=== PATIENT | male | born 1945 | race Caucasian/White ===

== ENCOUNTER → 2024-10-29 | Outpatient (CLI) | payer MEDICARE, BC, SELFPAY ==
[2024-10-29 14:03] LABS: Albumin, Serum 4.6 gm/dL (3.4-4.8); Anion Gap 7 (7-16); BUN/Creatinine Ratio 20 Ratio (12-20); Blood Urea Nitrogen 40 mg/dL (9-23); Calcium 9.9 mg/dL (8.3-10.6); Calcium (Corrected) 9.9 mg/dL (8.5-10.1); Carbon Dioxide 27.2 mMol/L (20.0-31.0); Chloride 104 mMol/L (98-107); Glucose 106 mg/dL (74-106); Osmolality,Calculated 285 (275-295); Phosphorous 3.1 mg/dL (2.4-5.1); Potassium 4.3 mMol/L (3.4-5.1); Sodium 138 mMol/L (136-145); eGFR 33 See Note
== END | disposition home or self-care (01) ==
LOC: COPL 13:15
PROVIDERS: PCP Internal Medicine; Referring Provider Internal Medicine; Visit Provider Internal Medicine
DX: I12.9 Hypertensive chronic kidney disease with stage 1 through stage 4 chronic kidney disease, or unspecified chronic kidney disease (principal); N18.32 Chronic kidney disease, stage 3b
CPT/HCPCS: 36415; 80069

== ENCOUNTER → 2025-01-27 | Outpatient (CLI) | payer MEDICARE, BC, SELFPAY ==
[2025-01-27 13:07] LABS: Basophils # (Auto) 0.1 Thou/mm3 (0.0-0.2); Basophils % (Auto) 1 % (0-2.5); Eosinophils # (Auto) 0.2 Thou/mm3 (0.0-0.5); Eosinophils % (Auto) 2 % (0-10); Hematocrit 38.3 % (41.0-53.0); Hemoglobin 12.6 g/dL (13.5-16.0); Immature Granulocytes % (Auto) 1 % (0-0); Immature Granulocytes Auto 0.09 Thou/mm3 (0.00-0.00); Lymphocytes # (Auto) 2.2 Thou/mm3 (1.0-4.8); Lymphocytes % (Auto) 24 % (10-50); Mean Corpuscular HGB Conc 32.9 g/dl (31.0-37.0); Mean Corpuscular Hemoglobin 32.1 pg (25.0-35.0); Mean Corpuscular Volume 98 fL (80-100); Monocytes # (Auto) 0.8 Thou/mm3 (0.0-0.8); Monocytes % (Auto) 9 % (0-12); Neutrophils # (Auto) 5.8 Thou/mm3 (1.8-7.7); Neutrophils % (Auto) 63 % (37-80); Nucleated Red Blood Cell % 0 /100 WBC (0); Platelet Count 223 Thou/mm3 (140-440); RDW Standard Deviation 47.8 fL (35.1-43.9); Red Blood Count 3.93 Miln/mm3 (4.50-5.90); White Blood Count 9.1 Thou/mm3 (3.8-10.6)
[2025-01-27 13:31] LABS: Albumin, Serum 4.4 gm/dL (3.4-4.8); Anion Gap 8 (7-16); BUN/Creatinine Ratio 16 Ratio (12-20); Blood Urea Nitrogen 30 mg/dL (9-23); Calcium 10.5 mg/dL (8.3-10.6); Calcium (Corrected) 10.5 mg/dL (8.5-10.1); Carbon Dioxide 28.4 mMol/L (20.0-31.0); Chloride 107 mMol/L (98-107); Creatinine (Component) 1.9 mg/dL (0.6-1.3); Glucose 116 mg/dL (74-106); Osmolality,Calculated 292 (275-295); Phosphorous 2.7 mg/dL (2.4-5.1); Potassium 4.1 mMol/L (3.4-5.1); Sodium 143 mMol/L (136-145); eGFR 35 See Note
[2025-01-27 15:23] LABS: Iron 100 mcg/dL (65-175); Percent Iron Saturation 29 % (20-55); Total Iron Binding Capacity 337 mcg/dL (250-425); Unsaturated Iron Binding 237 (225-295)
== END | disposition home or self-care (01) ==
PROVIDERS: PCP Internal Medicine; Referring Provider Internal Medicine; Visit Provider Internal Medicine
DX: I12.9 Hypertensive chronic kidney disease with stage 1 through stage 4 chronic kidney disease, or unspecified chronic kidney disease (principal); N18.32 Chronic kidney disease, stage 3b
CPT/HCPCS: 36415; 80069; 83540; 83550; 85025

== ENCOUNTER → 2025-02-01 | Outpatient (CLI) | payer MEDICARE, BC, SELFPAY ==
--- NOTE | 2025-02-01 | XR_ITS ---
Examination:Left hip AP, lateral, AP pelvis 3 views Technique: Hip AP lateral, AP pelvis, 3 views Exam date and time:February 01, 2025 1343 hours Comparison July 01, 2021 INDICATIONS: Left hip pain one year. FINDINGS: Healed left hip fracture Old fractures right superior inferior pubic rami Moderate left hip osteoarthritis Mild to moderate right hip osteoarthritis IMPRESSION: No acute fracture Moderate left hip osteoarthritis.
== END | disposition home or self-care (01) ==
PROVIDERS: PCP Internal Medicine; Referring Provider Internal Medicine; Visit Provider Internal Medicine
DX: M16.12 Unilateral primary osteoarthritis, left hip (principal)
CPT/HCPCS: 73502

== ENCOUNTER 2025-03-08 13:01 | Outpatient (AMB) | payer MEDICARE, BC, SELFPAY ==
[2025-03-08 13:36] VITALS: BP 165/71; PULSE 48; RESP 18; TEMP 37.1; O2SAT 94; BMI 28.0
--- NOTE | 2025-03-08 13:36 | ORTHONT_ITS ---
Vital signs 03/08/25 13:36 Height 1.85 m Height Method Stated Weight 96.303 kg Weight Measurement Method Standing Scale BMI 28.0 BP 165/71 H Blood Pressure Source Automatic Cuff Blood Pressure Location Right Upper Arm Position Sitting Respiration 18 Pulse 48 L Pulse Source Monitor Temp 98.7 F Temp Source Temporal Artery Scan Pulse Oximetry (%) 94 L Oxygen Delivery Method Room Air Med/Allergies Allergies & Medications Allergies No Known Allergies Allergy (Verified 03/08/25 13:37) Medication Reconciliation ergocalciferol (vitamin D2) 10 mcg (400 unit) tablet 10 mcg PO QDAY 10/22/20 [History Confirmed 06/24/22] valsartan 320 mg-hydrochlorothiazide 12.5 mg tablet 1 tab PO QDAY 10/22/20 [History Confirmed 06/24/22] warfarin 5 mg tablet 5 mg PO QDAY 10/22/20 [History Confirmed 06/24/22] ferrous sulfate 325 mg (65 mg iron) tablet 325 mg PO QDAY 03/08/25 [History Confirmed 03/08/25] finerenone 10 mg tablet (Kerendia) 10 mg PO QDAY 03/08/25 [History Confirmed 03/08/25] hydralazine 50 mg tablet 50 mg PO TID 03/08/25 [History Confirmed 03/08/25] hydrocodone 5 mg-acetaminophen 325 mg tablet 1 tab PO BID PRN 03/08/25 [History Confirmed 03/08/25] memantine 5 mg tablet 5 mg PO QAM 03/08/25 [History Confirmed 03/08/25] nebivolol 5 mg tablet 5 mg PO QDAY 03/08/25 [History Confirmed 03/08/25] olmesartan 40 mg-hydrochlorothiazide 25 mg tablet 1 tab PO QDAY 03/08/25 [History Confirmed 03/08/25] vitamin B complex-vitamin C-folic acid 0.8 mg tablet (Renal Vitamin) 1 tab PO QDAY 03/08/25 [History Confirmed 03/08/25] vortioxetine 10 mg tablet (Trintellix) 10 mg PO QDAY 03/08/25 [History Confirmed 03/08/25] warfarin 5 mg tablet 5 mg PO QMWF 03/08/25 [History Confirmed 03/08/25] Exam Exam Patient is in no acute distress and is cooperative with the examination today. Breathing is nonlabored. In no respiratory distress. Patient has no paraspinal tenderness. Spinal deformity cannot be appreciated. The gait of the patient is nonantalgic Bilateral extremities were evaluated and demonstrates sensation intact to light touch. Palpable pedal pulses are present. No significant edema is present. Bilateral knees were examined and the patient has full strength and range of motion.. The right hip was examined. Patient was able to flex to 90 degrees, adduct to 30 degrees, abduct to 40 degrees, internally rotate to 20 degrees, and externally rotate to 20 degrees. Patient has a negative logroll. Stinchfield is negative. The patient is nontender diffusely to touch. The left hip was examined. Patient was able to flex to 90 degrees, adduct to 30 degrees, abduct to 40 degrees, internally rotate to 20 degrees, and externally rotate to 20 degrees. Patient has a negative logroll. The stinchfield is negative. Patient is tender laterally over the greater trochanter X-rays have formed straight a cephalomedullary nail in good alignment position Assessment and Plan Problem List (1) Trochanteric bursitis of left hip: Status: Acute Plan: Patient is a pleasant 80-year-old male with left hip trochanteric bursitis and x-rays that show mild arthritis. The pain is predominately on the side and clinically he seems to have trochanteric bursitis. We discussed different treatment options including injections. Anti-inflammatories will be difficult because of his blood thinner. Recommend hip bursa cortisone injection as patient would like to proceed with conservative treatment at this time. The risks and benefits of the procedure were reviewed with the patient and patient gave verbal consent to continue with the procedure. Procedure: performed by Dr. Camilo Using sterile technique the left hip bursa was thoroughly prepped with alcohol prep, and approximately 1 cc of Kenalog 40 mg/mL and 4 cc of 1% Lidocaine was injected without resistance. The patient tolerated the procedure well. 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 Level 3 (6060-0157) Surgical Proc/IM SQ injection Major Surgical Procedure: Yes (HIP INJECTION ) Medication Given Medication Given Medication Given: Yes Documented Dose Given: 4 Route: Infiitration Medication Given Medication Given Medication Given: Yes Documented Dose Given: 1 Route: Infiitration Office Meds Xylocaine 10 mg/mL (1 %) injection solution Performing Provider: Marvin Camilo MD Performing Location: [facility] Administered by: Marvin Camilo MD on 03/08/25 13:46 Dose Route Admin Location Dispensed Lot Number Expiration Date [facility] Check Writer 20 mL Infiltration 20 mL [id number] [facility] KA triamcinolone acetonide 40 mg/mL suspension for injection Performing Provider: Marvin Camilo MD Performing Location: [facility] Administered by: Marvin Camilo MD on 03/08/25 13:46 Dose Route Admin Location Dispensed Lot Number Expiration Date [facility] Check Writer 40 mg intra-articular HIP 1 mL [id number] 03/17/26 [id number] [facility] [place] Intake Visit Data Collection New Patient or Established: New Patient (never been to [facility]) Reason for Visit:: HIP PAIN Seen by Clinical Staff ONLY (RN/MA): No Verbal consent obtained for Telemed visit?: No Rouge Mixer Required: No PCP or OBGYN visit in last 3 months: Yes Hx Now: No Do You Feel Safe at Home: Yes Authorities Contacted: N/A Questionairres Past Medical History Past Medical History Have you ever been diagnosed with any of the following: Neurological Problems Seizures: No Subdural Hematoma: Yes Head Trauma: Yes Cardiology Problems Congestive Heart Failure: No Valvular Heart Disease: Yes Edema: No Cellulitis: No Hypertension: Yes Respiratory Problems Chronic Obstructive Pulmonary Disease (COPD): No Tuberculosis: No Sleep Apnea: Yes Stomache/Intestinal Problems Hepatitis: No Genital/Urinary Problems Renal Disease: No Musculoskeletal Problems Fractures: Yes (left hip) Endocrine Problems Diabetes Mellitus Type 1: No Diabetes Mellitus Type 2: No Other Problems Hospitalization: No Shingles: No Falls: No Blood Transfusions: No Anesthesia Reactions: No Chemotherapy: No Radiation Therapy: No MRSA: No Chicken Pox: No Measles: No Mumps: No Cancer: No Surgical History Valve Replacement: Yes Pacemaker: No Subjective Visit Visit for: new patient and hip Immunization / Flu Flu Vaccine in the Last 12 Months: No Flu Vaccine Exclusion Criteria: No Exclusion Criteria History of Present Illness Chief complaint: HIP PAIN Date of injury / onset of symptoms: HIP FX 2020 Vin is a pleasant 80-year-old male with a prior Left hip cephalomedullary nail approximately 5 years ago. He has had no issues until recently. The pain is on the lateral aspect of his hip. It is tender to palpation he has difficulty sleeping on his side. He cannot take anti-inflammatories because of Blood thinners and a valve replacement Personal History Occupation: RETIRED Red flag PMH: Blood thinners and BMI BMI Counceling provided: Yes Additional comments: PATIENT HAS DEMENTIA Pain Pain level (0-10): 6 Pain duration: ALL DAY Pain location: groin Pain quality: burning Pain timing: increases with activity Associated signs & symptoms: none Ambulatory data Ambulatory device: cane Treatments Improvement with previous injections: No Improvement with PT: No Improvement with NSAIDS: no Review of Systems Review of Systems: All systems negative unless otherwise noted in HPI.
== END 2025-03-08 14:00 | disposition home or self-care (01) ==
PROVIDERS: PCP Internal Medicine; Referring Provider Internal Medicine; Supervising Provider Orthopaedic Surgery Adult Reconstructive Orthopaedic Surgery; Visit Provider Orthopaedic Surgery Adult Reconstructive Orthopaedic Surgery
DX: M70.62 Trochanteric bursitis, left hip (principal); G47.30 Sleep apnea, unspecified; I10 Essential (primary) hypertension
CPT/HCPCS: 20610; 99203; J3301; J3490; G0463

== ENCOUNTER 2025-03-17 09:59 | Outpatient (AMB) | payer MEDICARE, BC, SELFPAY ==
--- NOTE | 2025-03-17 10:18 | ORTHONT_ITS ---
Vital signs 03/17/25 10:20 Height 1.85 m Height Method Stated Weight 96.757 kg Weight Measurement Method Standing Scale BMI 28.3 BP 152/67 H Blood Pressure Source Automatic Cuff Blood Pressure Location Left Upper Arm Position Sitting Respiration 18 Pulse 52 L Pulse Source Monitor Temp 98.2 F Temp Source Temporal Artery Scan Pulse Oximetry (%) 98 Oxygen Delivery Method Room Air Med/Allergies Allergies & Medications Allergies No Known Allergies Allergy (Verified 03/17/25 10:20) Medication Reconciliation ergocalciferol (vitamin D2) 10 mcg (400 unit) tablet 10 mcg PO QDAY 10/22/20 [Hi story Confirmed 03/17/25] valsartan 320 mg-hydrochlorothiazide 12.5 mg tablet 1 tab PO QDAY 10/22/20 [History Confirmed 03/17/25] warfarin 5 mg tablet 5 mg PO QDAY 10/22/20 [History Confirmed 03/17/25] ferrous sulfate 325 mg (65 mg iron) tablet 325 mg PO QDAY 03/08/25 [History Confirmed 03/17/25] finerenone 10 mg tablet (Kerendia) 10 mg PO QDAY 03/08/25 [History Confirmed 03/17/25] hydralazine 50 mg tablet 50 mg PO TID 03/08/25 [History Confirmed 03/17/25] hydrocodone 5 mg-acetaminophen 325 mg tablet 1 tab PO BID PRN 03/08/25 [History Confirmed 03/17/25] memantine 5 mg tablet 5 mg PO QAM 03/08/25 [History Confirmed 03/17/25] nebivolol 5 mg tablet 5 mg PO QDAY 03/08/25 [History Confirmed 03/17/25] olmesartan 40 mg-hydrochlorothiazide 25 mg tablet 1 tab PO QDAY 03/08/25 [History Confirmed 03/17/25] vitamin B complex-vitamin C-folic acid 0.8 mg tablet (Renal Vitamin) 1 tab PO QDAY 03/08/25 [History Confirmed 03/17/25] vortioxetine 10 mg tablet (Trintellix) 10 mg PO QDAY 03/08/25 [History Confirmed 03/17/25] warfarin 5 mg tablet 5 mg PO QMWF 03/08/25 [History Confirmed 03/17/25] Exam Exam Patient is in no acute distress and is cooperative with the examination today. Breathing is nonlabored. In no respiratory distress. Patient has no paraspinal tenderness. Spinal deformity cannot be appreciated. The gait of the patient is nonantalgic Bilateral extremities were evaluated and demonstrates sensation intact to light touch. Palpable pedal pulses are present. No significant edema is present. Bilateral knees were examined and the patient has full strength and range of motion.. The right hip was examined. Patient was able to flex to 90 degrees, adduct to 30 degrees, abduct to 40 degrees, internally rotate to 20 degrees, and externally rotate to 20 degrees. Patient has a negative logroll. Stinchfield is negative. The patient is nontender diffusely to touch. The left hip was examined. Patient was able to flex to 90 degrees, adduct to 30 degrees, abduct to 40 degrees, internally rotate to 20 degrees, and externally rotate to 20 degrees. Patient has a negative logroll. The stinchfield is negative. Patient is tender laterally over the greater trochanter X-rays have formed straight a cephalomedullary nail in good alignment position Assessment and Plan Problem List (1) Trochanteric bursitis of left hip: Status: Acute Plan: Patient is a pleasant 80-year-old male with left hip trochanteric bursitis and x-rays that show mild arthritis. The pain is predominately on the side and clinically he seems to have trochanteric bursitis. We gave him a cortisone injection 1 week ago. It is somewhat working. He would like To try formal physical therapy mainly because of balance issues We will set him up with physical therapy. He cannot take anti-inflammatories for his trochanteric bursitis because of his blood thinner Advanced Care Planning Discussion Advance care planning discussed with:: patient Office Procedures GNS Level of Care Nursing/Assessment Patient Status: Established Patient Nursing Assessment/Reassesment: Medication Reconciliation, Update PMH in EMR and Vital Signs Coordination of Care: Complex Care and Chronic Disease 1-5, Education Complex Pt/Fam, Consent,records obtained, informed consent, Results/Orders obtained and Staff clarify orders Established Patient Charge Established Patient Point Assignment: 95 Established Patient Point Charge: EP Level 3 (80-115) MA Intake Visit Data Collection New Patient or Established: Established Patient (seen at [facility] within 3 years) Reason for Visit:: RIGHT HIP PAIN FOLLOW UP PCP or OBGYN visit in last 3 months: Yes Hx Now: No Do You Feel Safe at Home: Yes Authorities Contacted: N/A Questionairres Past Medical History Past Medical History Have you ever been diagnosed with any of the following: Neurological Problems Seizures: No Subdural Hematoma: Yes Head Trauma: Yes Cardiology Problems Congestive Heart Failure: No Valvular Heart Disease: Yes Edema: No Cellulitis: No Hypertension: Yes Respiratory Problems Chronic Obstructive Pulmonary Disease (COPD): No Tuberculosis: No Sleep Apnea: Yes Smoking: No Smoking Exposure: No Stomache/Intestinal Problems Hepatitis: No Genital/Urinary Problems Renal Disease: No Musculoskeletal Problems Fractures: Yes (left hip) Endocrine Problems Diabetes Mellitus Type 1: No Diabetes Mellitus Type 2: No Other Problems Hospitalization: No Shingles: No Falls: No Blood Transfusions: No Anesthesia Reactions: No Chemotherapy: No Radiation Therapy: No MRSA: No Chicken Pox: No Measles: No Mumps: No Cancer: No Surgical History Valve Replacement: Yes Pacemaker: No Subjective Visit Visit for: follow up visit and hip Immunization / Flu Flu Vaccine in the Last 12 Months: No Flu Vaccine Exclusion Criteria: No Exclusion Criteria History of Present Illness Chief complaint: HIP PAIN Date of injury / onset of symptoms: HIP FX Marquita Banuelos is a pleasant 80-year-old male with a prior Left hip cephalomedullary nail approximately 5 years ago. He has had no issues until recently. The pain is on the lateral aspect of his hip. It is tender to palpation he has difficulty sleeping on his side. He cannot take anti-inflammatories because of Blood thinners and a valve replacement. He had an injection 1 week ago. There was good relief of the pain initially but it is starting to come back. We discussed with him that it sometimes takes a few days for the cortisone towork and it is starting to improve again Personal History Occupation: RETIRED Red flag PMH: Blood thinners and BMI BMI Counceling provided: Yes Additional comments: PATIENT HAS DEMENTIA Pain Pain level (0-10): 10 Pain duration: ALL DAY Pain location: inside (medial) and anterior Pain quality: dull and aching Pain timing: increases with activity Associated signs & symptoms: weakness Ambulatory data Ambulatory device: none Treatments Improvement with previous injections: No Improvement with PT: No Improvement with NSAIDS: no Review of Systems Review of Systems: All systems negative unless otherwise noted in HPI.
[2025-03-17 10:20] VITALS: BP 152/67; PULSE 52; RESP 18; TEMP 36.8; O2SAT 98; BMI 28.3
== END 2025-03-17 10:36 | disposition home or self-care (01) ==
LOC: HODSRG 09:59
PROVIDERS: PCP Internal Medicine; Referring Provider Internal Medicine; Supervising Provider Orthopaedic Surgery Adult Reconstructive Orthopaedic Surgery; Visit Provider Orthopaedic Surgery Adult Reconstructive Orthopaedic Surgery
DX: M70.62 Trochanteric bursitis, left hip (principal); M16.12 Unilateral primary osteoarthritis, left hip; I10 Essential (primary) hypertension; G47.30 Sleep apnea, unspecified; Z95.2 Presence of prosthetic heart valve
CPT/HCPCS: 99213; G0463

== ENCOUNTER → 2025-04-27 | Outpatient (CLI) | payer MEDICARE, BC, SELFPAY ==
[2025-04-27 11:52] LABS: Parathyroid Hormone Intact 64.6 pg/ml (18.5-88.0)
[2025-04-27 12:02] LABS: Albumin, Serum 4.1 gm/dL (3.4-4.8); Anion Gap 12 (7-16); BUN/Creatinine Ratio 21 Ratio (12-20); Blood Urea Nitrogen 40 mg/dL (9-23); Calcium 9.6 mg/dL (8.3-10.6); Calcium (Corrected) 9.6 mg/dL (8.5-10.1); Carbon Dioxide 25.7 mMol/L (20.0-31.0); Chloride 106 mMol/L (98-107); Creatinine (Component) 1.9 mg/dL (0.6-1.3); Glucose 94 mg/dL (74-106); Osmolality,Calculated 296 (275-295); Potassium 4.1 mMol/L (3.4-5.1); Sodium 144 mMol/L (136-145); eGFR 35 See Note
== END | disposition home or self-care (01) ==
LOC: COPL 10:56
PROVIDERS: PCP Internal Medicine; Referring Provider Internal Medicine; Visit Provider Internal Medicine
DX: I12.9 Hypertensive chronic kidney disease with stage 1 through stage 4 chronic kidney disease, or unspecified chronic kidney disease (principal); N18.32 Chronic kidney disease, stage 3b
CPT/HCPCS: 36415; 80069; 83970

== ENCOUNTER 2025-06-20 09:31 | Emergency (ER) | payer MEDICARE, BC, SELFPAY ==
[2025-06-20] VITALS (10 sets, daily range): BP systolic 153–188; BP diastolic 83–91; PULSE 57–84; RESP 17–18; TEMP 36.4–36.7; O2SAT 95–100; BMI 29.8
--- NOTE | 2025-06-20 09:45 | PC.NURSE ---
Patient refusing to keep radiation monitor on, very agitated with it on, removed, Provider made aware.
--- NOTE | 2025-06-20 09:59 | EDNOTE_ITS ---
<Statement entered by Lisa Olivo MD - 06/21/25 08:10> I, Lisa Olivo MD, have reviewed the history, exam, and assessment of the patient. I have evaluated the patient independently and agree with the plan of care documented by [ ]. All diagnostic studies were reviewed and discussed. I confirm the diagnosis as documented by the Resident. I was present during the Medical Decision Making for this patient. The patient's plan of care was created between myself and the Resident and consistent with our discussion of the patient's case. ED General RME/HPI General Chief complaint: Altered Mental Status Stated complaint: BEHAVIORAL PROBLEMS Time Seen by Provider: 06/20/25 09:56 Arrival date/time: 06/20/25 09:31 RME / HPI RME / HPI narrative: 80-year-old male with past medical history of CKD, subdural hemorrhage s/p mechanical fall, hypertension, aortic valve replacement on warfarin, and vascular dementia comes into the ED brought in by ambulance after patient had attempted to escape from his home as he was having episode of agitation and confusion likely secondary to his dementia. Patient's caregiver was with the patient at this time and patient's caregiver was with the patient at the time of arrival. Patient's caregiver stated that for the past 4 days patient has been more aggressive and more agitated and he recently started mirtazapine for the first time yesterday night. Family attempted to talk to the patient's primary care physician who stated to bring the patient to the ER for further evaluation. Patient at time evaluation is nontoxic and is calm. Related Data Home Medications ?Medication ?Instructions ?Recorded ?Confirmed ferrous sulfate 325 mg (65 mg 325 mg PO BID 03/08/25 0 06/20/25 iron) tablet hydralazine 50 mg tablet 50 mg PO HS 03/08/25 5 memantine 5 mg tablet 5 mg PO BID 03/08/25 5 olmesartan 40 1 tab PO QDAY 03/08/2506/20 mg-hydrochlorothiazide 25 mg tablet brexpiprazole 1 mg tablet (Rexulti) 1 mg PO QDAY 06/2006/20/25 cholecalciferol (vitamin D3) PO QDAY 06/20/25 finerenone PO QDAY 06/20/25 hydrochlorothiazide 50 mg tablet 50 mg PO .qhs 5 06/20/25 nebivolol 5 mg tablet 5 mg PO QDAY 06/20/25 vitamin B complex-vitamin C-folic 1 tab PO QDAY 06/20/25 acid 0.8 mg tablet vitamin B12 0.5 mg-folic acid 1 mg 1 tab PO QAM 06/20/25 tablet warfarin 2.5 mg tablet 5 mg PO QDAY 06/20/25 Allergies Allergy/AdvReac Type Severity Reaction Status Date / Time No Known Allergies Allergy Verified 06/20/25 09:37 Review of Systems Review of Systems Systems Reviewed: All systems reviewed, normal except as documented Past Medical History Past Medical History NEUROLOGIC: Positive Neurological Disorders, Subdural Hematoma (BRAIN BLEED. FELL 10/22/21-RESOLVED) and Head Trauma; Negative Seizures CARDIAC: Positive Cardiac Disorders (AORTIC HEART VALVE TITANIUM JANUARY 1997), Valvular Heart Disease and Hypertension; Negative Congestive Heart Failure, Edema or Cellulitis RESPIRATORY: Positive Sleep Apnea (CPAP); Negative Chronic Obstructive Pulmonary Disease (COPD) or Tuberculosis GASTROINTESTINAL: Negative Gastrointestinal Disorders or Hepatitis GENITOURINARY: Negative Genitourinary Disorders or Renal Disease MUSCULOSKELETAL: Positive Musculoskeletal Disorders and Fractures (LEFT HIP HAS BAR) ENT: Positive Head Trauma ENDOCRINE: Negative Endocrine Disorders, Diabetes Mellitus Type 1 or Diabetes Mellitus Type 2 HEMATOLOGIC: Negative Blood Disorders OTHER HISTORY: Positive Hospitalization (HOSP FOR HEAD TRAUMA) and Falls (10/18/2020 [facility]F HIP HAD JASSI); Negative Autoimmune Disease, Shingles, Blood Transfusions, Blood Transfusion Reaction, Anesthesia Reactions, Chemotherapy, Radiation Therapy, MRSA, Chicken Pox, Measles, Mumps or Cancer Family History FAMILY HISTORY: Positive Family Respiratory Disorders (MOTHER (COPD)); Negative Family Psychiatric Problems, Family Cardiac Disorders, Family Gastrointestinal Problems, Family Cancer, Family Surgery or Family Anesthesia Reaction Surgical History SURGICAL: Positive Cardiac Surgery, Valve Replacement (TITANIUM), Angiogram and Joint Replacement (LEFT HIP HAS BAR); Negative Pacemaker Social History SMOKING STATUS: Never smoker Travel History EBOLA RISK: No ED Exam Narrative Physical exam: Gen: A&O X 1 (name only), NAD HEENT: NCAT, EOMI, Pupils reactive EMERITA, not icteric. External ears normal. No rhinorrhea. Moist mucous membranes. Neck: Supple, full range of motion, no observable masses, No meningeal sign. Lungs: No Respiratory distress, clear bilateral. CV: RRR, no murmurs. Abdomen: Soft, nondistended, No rebound tenderness. MSK: No joint swelling, no redness, peripheral pulses presents, lumbar with no edema. Skin: No rashes, petechiae, skin lesion in R ear (consistent with skin cancer) Neuro: No focal neurological deficits appreciated, sensory and motor intact. Psych: Cooperative Course Quality Measures none Orders Category Date Time Status Construction Engineering Manager Q4H START 00 Care 06/20/25 10:13 Active Continuous Pulse Oximetry NOW Care 06/20/25 10:13 Completed Miscellaneous Nursing Order NOW Care 06/20/25 16:56 Active Diet Cardiac Diet 06/20/25 Dinner Active CBC [CBC] Stat Lab 06/20/25 10:23 Completed CMP [Comprehensive Metabolic Panel] Stat Lab 06/20/25 10:23 Completed UA [Urinalysis] Stat Lab 06/20/25 11:25 Completed Memantine HCl [Namenda] Med 06/20/25 21:00 Active 5 mg PO BID Nebivolol HCl [Bystolic] Med 06/20/25 17:00 Active 5 mg PO QDAY Patient's Own Med [Patient's Own Medication] 1 ea Med 06/20/25 17:15 Active Pre-Mixed Bottle [Pre-mixed Bottle] 1 btl PO QDAY Patient's Own Med [Patient's Own Medication] 1 ea Med 06/20/25 17:15 Active Pre-Mixed Bottle [Pre-mixed Bottle] 1 btl PO QDAY Warfarin [Coumadin] Med 06/20/25 17:00 Active 5 mg PO QDAY@1200 hydrALAZINE HCL [Apresoline] Med 06/20/25 21:00 Active 50 mg PO HS olmesartan-hydrochlorothiazide Med 06/20/25 17:00 Active 1 tab PO QDAY Vital Signs Vital signs: Vital Signs Temperature 97.7 F 06/20/25 09:35 Pulse Rate 71 06/20/25 09:35 Respiratory Rate 18 06/20/25 09:35 Blood Pressure 153/83 H 06/20/25 09:35 Pulse Oximetry (%) 96 06/20/25 09:35 Oxygen Delivery Method Room Air 06/20/25 09:35 Discharge Plan Prescriptions/Referrals Prescriptions/Med Rec: No Action olmesartan-hydrochlorothiazide 40-25 mg tablet 1 tab PO QDAY hydralazine 50 mg tablet 50 mg PO HS memantine 5 mg tablet 5 mg PO BID ferrous sulfate 325 mg (65 mg iron) tablet 325 mg PO BID warfarin 2.5 mg tablet 5 mg PO QDAY Patient Comments: pt takes 5 mg warfarin daily nebivolol 5 mg tablet 5 mg PO QDAY B complex-vitamin C-folic acid 0.8 mg tablet 1 tab PO QDAY finerenone [Kerendia] PO QDAY Patient Comments: unknown dose cholecalciferol (vitamin D3) PO QDAY hydrochlorothiazide 50 mg tablet 50 mg PO .qhs Rexulti 1 mg tablet 1 mg PO QDAY vitamin [id number] acid 0.5-1 mg tablet 1 tab PO QAM Patient Comments: unknown dose Referrals: Santy Gannon [Primary Care Provider] - In 1 week Problem List Clinical Impression: Agitation due to dementia Patient/Caregiver Discharge Instructions Other Activity Instructions:: Follow her primary care physician within 5 days to work for possibility of placement in a long-term care facility. Please come back to the ED if agitation persists or worsens or patient is at risk to himself or others. Education Materials: Dementia Patients Safety Tips, Understanding Dementia, Dementia Caregiver Tips Print Language: Kazakh MDM Narrative MDM hospital course: 10:00: Greeted and assessed the patient. 10:13: Ordered CBC, CMP, and UA. 10:50: Spoke with patient's daughters about the patient's progression of dementia and thoroughly explained to them that this was likely secondary to the progression of the disease. Patient's daughter stated that at this time they have cared for the patient throughout the day but not 24-hour care. They stated that this time patient lives with his who is 75 years old and they state that sometimes patient has shown aggression towards her and they fear for her safety at this time given the progression of the disease. At this time patient's daughters agree that it would be in the patient's best interest and safety to have placement as patient's disease has progressed we will states where it is unmanageable by family members. 14:00 Patient reevaluated. Doing well, but somewhat irritable. Still pending placement. 14:24: Spoke with clinical social work aide, patient does not qualify for placement. social services counselor will see if patient qualifies for HH. 14:30: Updated patient's daughter. 16:46: Patient's blood pressure was elevated even after he had come down from his previous episode of agitation. Patient's daughter stated that he had not ta fabian his medications this morning therefore they brought his medications sent and we will start some of the home medication. Still waiting for placement. 17:35: Patient wanting to leave room, but I personally help redirect the patient and patient remained calm afterwards. 17:59: Case signed off to Dr. Ruth, [facility] ER physician. Case disclosed with Attending Dr. Pallavi Graves PGY2 Disclaimer: Even though this this note was dictated by speech recognition and even though it was carefully revised there may still be minor errors in motion picture printer due to voice recognition software. Medication Administration(s) Medication Administration History (Brexpiprazole [ Rexulti] 1 Mg Tablet ) 0 ea PO QDAY [facility] Stop: 07/20/25 17:14 Last Admin: 06/20/25 17:43 Dose: 1 tablet Documented By: GEOVANI (Olmesartan- Hydrochlorothiazide 40-25 Mg Tablet) 0 ea PO QDAY [facility] Stop: 07/20/25 17:14 Last Admin: 06/20/25 17:44 Dose: 1 tablet Documented By: GEOVANI Hydralazine HCl (Hydralazine Hcl 25 Mg Tablet) 50 mg PO HS [facility] Stop: 07/20/25 20:59 Memantine (Memantine Hcl 5 Mg Tablet) 5 mg PO BID [facility] Stop: 07/20/25 20:59 Nebivolol (Nebivolol Hcl 5 Mg Tablet (Non-Formulary)) 5 mg PO QDAY [facility] Stop: 07/20/25 16:59 Last Admin: 06/20/25 17:45 Dose: 5 mg Documented By: GEOVANI (Olmesartan- Hydrochlorothiazide 40-25 Mg Tablet) 1 tab PO QDAY [facility] Stop: 07/20/25 16:59 Last Admin: 06/20/25 17:49 Dose: Not Given Documented By: GEOVANI Non-Admin Reason: Duplicate Medication on eMAR Warfarin Sodium (Warfarin 2.5 Mg Tablet) 5 mg PO QDAY@1200 [facility] Stop: 07/04/25 16:59 Last Admin: 06/20/25 17:46 Dose: 5 mg Documented By: GEOVANI
--- NOTE | 2025-06-20 10:19 | PC.NURSE ---
paient to er via ems for confusion h/o dementia, left his home and daughter called ems to bring him to the ER for having increased confusion. Currently, patient alert to person and place. Patient rambling stating i would never hurt anyone patient also stating sentences out of context and appears confused and agitated intermittently, however, patient cooperative and answering most questions appropriately. Patient denies pain, skin is warm dry and pink, and careprovider, Jen at bedside. Daughter on her way to be with patient. Call light within reach.
[2025-06-20 10:29] LABS: Basophils # (Auto) 0.1 Thou/mm3 (0.0-0.2); Basophils % (Auto) 1 % (0-2.5); Eosinophils # (Auto) 0.2 Thou/mm3 (0.0-0.5); Eosinophils % (Auto) 3 % (0-10); Hematocrit 34.2 % (41.0-53.0); Hemoglobin 11.3 g/dL (13.5-16.0); Immature Granulocytes Auto 0.02 Thou/mm3 (0.00-0.00); Lymphocytes # (Auto) 1.6 Thou/mm3 (1.0-4.8); Lymphocytes % (Auto) 21 % (10-50); Mean Corpuscular HGB Conc 33.0 g/dl (31.0-37.0); Mean Corpuscular Hemoglobin 33.3 pg (25.0-35.0); Mean Corpuscular Volume 101 fL (80-100); Monocytes # (Auto) 0.8 Thou/mm3 (0.0-0.8); Monocytes % (Auto) 10 % (0-12); Neutrophils # (Auto) 5.0 Thou/mm3 (1.8-7.7); Neutrophils % (Auto) 65 % (37-80); Nucleated Red Blood Cell # 0.00 Thou/mm3 (0.00-0.00); Nucleated Red Blood Cell % 0 /100 WBC (0); Platelet Count 197 Thou/mm3 (140-440); RDW Standard Deviation 49.0 fL (35.1-43.9); Red Blood Count 3.39 Miln/mm3 (4.50-5.90); White Blood Count 7.6 Thou/mm3 (3.8-10.6)
[2025-06-20 11:03] LABS: Alanine Aminotransferase 12 U/L (10-49); Albumin, Serum 4.0 gm/dL (3.4-4.8); Albumin/Globulin Ratio 2.1 (1.2-2.2); Alkaline Phosphatase 53 U/L (46-116); Anion Gap 10 (7-16); Aspartate Amino Transferase 19 U/L (0-34); BUN/Creatinine Ratio 15 Ratio (12-20); Bilirubin,Total 0.6 mg/dL (0.3-1.2); Blood Urea Nitrogen 31 mg/dL (9-23); Calcium 9.5 mg/dL (8.3-10.6); Calcium (Corrected) 9.5 mg/dL (8.5-10.1); Carbon Dioxide 27.5 mMol/L (20.0-31.0); Chloride 107 mMol/L (98-107); Creatinine (Component) 2.1 mg/dL (0.6-1.3); Estimated Creatinine Clearance 33.7 mL/min (>60); Globulin 1.9 gm/dL (2.3-3.5); Glucose 110 mg/dL (74-106); Osmolality,Calculated 294 (275-295); Potassium 3.8 mMol/L (3.4-5.1); Sodium 144 mMol/L (136-145); Total Protein 5.9 gm/dL (5.7-8.2); eGFR 31 See Note
[2025-06-20 11:30] LABS: Collection Type, Urine Voided; Squamous Epithelial Cell,Urine 0 /hpf (0-5)
[2025-06-20 11:57] LABS: Bilirubin,Urine Negative (Negative); Blood,Urine Negative (Negative); Clarity,Urine Clear (Clear/Hazy); Color,Urine Lt-Yellow (Lt Yel-Yel); Glucose, Urine Negative (Negative); Hyaline Casts,Urine < 1 /hpf (0-1); Ketones,Urine Negative (Negative); Leukocyte Esterase,Urine Negative (Negative); Nitrite,Urine Negative (Negative); PH,Urine 6.0 (5.0-7.0); Protein,Urine Negative (Neg - Trace); RBC,Urine 1 /hpf (0-3); Specific Gravity,Urine 1.018 (1.001-1.035); Urobilinogen,Urine Negative mg/dL (0.0-1.0); WBC,Urine 1 /hpf (0-5)
--- NOTE | 2025-06-20 12:51 | PC.SS ---
Addendum entered by Suzanne Goldberg 06/20/25 14:31: SS follow up note; SS contacted patient's daughter, Marizol and informed her that patient's secondary insurance is not able to cover. Marizol verbalized understanding and informed SS that they are able to pay out of pocket cost for patient to discharge to a lock down facility.SS informed Marizol that SS will make the attempt to follow up with facilities to dermine the cost. SS will stand by for further needs. Addendum entered by Suzanne Goldberg 06/20/25 13:54: SS follow up note; SS reviewed patient's secondary insurance and patient has a private insurance, therefore it will have to be out of pocket pay. SS will follow up with patient's daughters in regards to discharge plan. Original Note: SS follow up note; SS met with patient's daughter, Marizol Erickson and Demetria in the conference room. Patient's daughter informed SS that patient has a HX of Dementia and informed SS that patient's dementia has been progressing. Patient's daughter, Marizol reported that she is patient's medical decision maker, [phone]. Marizol informed SS that patient's has had aggressive behavior since . Marizol expressed that today patient was wandering around and that's when they decided to contact [place] [employer]. Marizol expressed the inability to care for the patient due to his aggressive behavior, Marizol reported that patient lives at home with his and they are concerned for her safety as well as patient's safety. SS informed patient's daughters that patient does not meet criteria for inpatient admission and therefore would have to submit for long-term placement with secondary insurance. SS informed patient's daughters that SS will attempt to seek placement in [facility], however patient will need a lock down facility and if there is not a facility that will accept him in [facility] then SS will have to expand the search. SS clarified that if a facility out of area accepts patient then patient would have to discharge to accepting facility and if they do not want patient to discharge to out of area facility then the next option would be for patient to discharge back home. SS informed them that SS would aim for a nearby placement and SS will follow up once facilities respond through [facility]. Patient's daughters were agreeable and verbalized understanding. SS will submit through [facility].
--- NOTE | 2025-06-20 13:27 | PC.NURSE ---
Patient agitated and confused stating he needs to go home getting out of bed. Patient redirected and placed back into [facility], called patient's careprovider Dre to come to er to sit with patient. Per Dre she will come to er to sit with patient.
--- NOTE | 2025-06-20 15:01 | PC.CC ---
Emilia VALLES made face to face contact with patient and daughters who are at bedside. Family reports they are willing to pay out of pocket for patient to be placed at a SNF.
--- NOTE | 2025-06-20 15:55 | PC.CC ---
Addendum entered by Emilia Casanova 06/20/25 16:21: 1621 Patient PASSR was closed out. Original Note: WEB PAGE DEVELOPEREmilia completed PASSR waiting for it to be closed as it was a Level II.
--- NOTE | 2025-06-20 16:50 | PC.NURSE ---
Medications reconciled, per daughter at bedside, patient has not taken any of his home medications today, provider to review and reconcile
[2025-06-20] MEDS: BREXPIPRAZOLE 1 MG PO (17:43)
[2025-06-20] MEDS: OLMESARTAN HYDROCHLOROTHIAZIDE PO (17:44)
[2025-06-20] MEDS: NEBIVOLOL HCL 5 MG TABLET (NON-FORMULARY) PO (17:45)
[2025-06-20] MEDS: WARFARIN 2.5 MG TABLET 5 MG PO (17:46)
--- NOTE | 2025-06-20 18:12 | PD.EDADDENDU ---
Emergency Room Addendum <Kacey Reagan - Last Filed: 06/21/25 01:15> Addendum Narrative: I took over the care from previous shift physician, Dr. Khan, attending Dr. Olivo, at 6 PM on 06/20/25. See previous notes for complete H & P and ED course. I reviewed all diagnostic test results. Diagnoses include: Treatment here included Chuck Ruth MD <Chuck Ruth MD - Last Filed: 06/21/25 01:16> Addendum Narrative: I took over the care from previous shift physician, Dr. Khan, at 6 PM on 06/20/25. See previous notes for complete H & P and ED course. Pending long-term placement. Haldol 10 mg IM given due to severe anxiety and agitation, for the safety of the patient and others. Significant improvement noted. Otherwise, the patient remained stable during my watch. At 6 AM on 06/21/2025, the care of the patient was transferred to Dr. Khan (attending Dr. OLIVO). Chuck Ruth MD
[2025-06-20] MEDS: HALOPERIDOL LACT INJ 5 MG/ML VIAL 10 MG IM (19:11)
--- NOTE | 2025-06-20 19:29 | PC.CC ---
HAI, Emilia spoke to Efra at [facility] who reports she has one male bed available. Packet was sent. HAI followed up with Efra but she is gone for the day. Staff reports that telephone contact can be made with Stan tomorrow as he is the hospice bereavement coordinator, HAI, provided update to patient's daughters who are at bedside. They were informed that there is no accepting facility at the moment. [facility] might be an option if they are willing to accept patient. Daughters were receptive to information.
[2025-06-20] MEDS: MEMANTINE HCL 5 MG TABLET PO (22:08)
--- NOTE | 2025-06-21 00:31 | PC.NURSE ---
PT IS ABLE TO BE REDIRCTED WHEN CONFUSED. PT GOT OUT OF GURNEY AND WAS WALKING IN ROOM. THIS RN REDIRECTED PT TO HAVE A SEAT ON CHAIR OR GURNEY. PT UNDERSTOOD AND SAT ON CHAIR. PTS GAIT IS STEADY
--- NOTE | 2025-06-21 06:01 | EDNOTE_ITS ---
<Statement entered by Lisa Olivo MD - 06/22/25 08:17> I, Lisa Olivo MD, have reviewed the history, exam, and assessment of the patient. I have evaluated the patient independently and agree with the plan of care documented by [ ]. All diagnostic studies were reviewed and discussed. I confirm the diagnosis as documented by the Resident. I was present during the Medical Decision Making for this patient. The patient's plan of care was created between myself and the Resident and consistent with our discussion of the patient's case. Emergency Room Addendum Addendum Narrative: Gen: A&O X 3, NAD HEENT: NCAT, EOMI, Pupils reactive EMERITA, not icteric. External ears normal. No rhinorrhea. Moist mucous membranes. Neck: Supple, full range of motion, no observable masses, No meningeal sign. Lungs: No Respiratory distress, clear bilateral. CV: RRR, no murmurs. Abdomen: Soft, nondistended, No rebound tenderness. MSK: No joint swelling, no redness, peripheral pulses presents, lumbar with no edema. Skin: No rashes, petechiae, lesions. Neuro: No focal neurological deficits appreciated, sensory and motor intact. Psych: Cooperative, appropriate mood and effect. Care assumed from previous shift supervisor rn ER physician, Dr. Ruth, at 6 AM. 6:25: Patient was seen and examined by myself after chart review. Overnight patient had become a little bit agitated and more anxious therefore he was given Haldol x 1 with improved symptoms. Patient is calm at this time. Still pending placement. 10:00: Spoke with Marizol, patient's daughter and updated on possible placement being found. Will come to hospital and speak to SS. 1:30: spoke with patient's daughter's who stated that they we will take patient home with hospice. At this time they also stated that his primary care physician has started Seroquel 50 mg twice daily. Patient's daughter are securing the home with locks to ensure patient safety. nutrition services assistant was present during the discussion and stated that she would arrange for hospice as well as transportation. Patient at this time is stable enough to be discharged home on hospice. Case disclosed with Attending Dr. Pallavi Graves PGY2 Disclaimer: Even though this this note was dictated by speech recognition and even though it was carefully revised there may still be minor errors in client services account manager due to voice recognition software.
--- NOTE | 2025-06-21 07:14 | PC.NURSE ---
Received report from Juju BACON and assumed care of patient. Patient standing in room by doorway. Patient cooperative at this time but states he just wants to go home . Insured patient patient that we are here to help him.
[2025-06-21 07:25] VITALS: BP 150/68; PULSE 52; RESP 17; TEMP 36.3; O2SAT 100
--- NOTE | 2025-06-21 07:43 | PC.CC ---
Pt is a 80-year-old male BIBA after patient had attempted to escape from his home as he was having episode of agitation and confusion likely secondary to his dementia, as per ER providers note Patient's caregiver was with the patient at this time and patient's caregiver was with the patient at the time of arrival. Patient's caregiver stated that for the past 4 days patient has been more aggressive and more agitated and he recently started mirtazapine for the first time yesterday night. Family attempted to talk to the patient's primary care physician who stated to bring the patient to the ER for further evaluation. Patient at time evaluation is nontoxic and is calm.
--- NOTE | 2025-06-21 07:45 | PC.CC ---
0715- Pt is a 80-year-old male BIBA after patient had attempted to escape from his home as he was having episode of agitation and confusion likely secondary to his dementia, as per ER provider. For the past 4 days patient has been more aggressive and more agitated and he recently started mirtazapine for the first time yesterday night, as per family members witnessed account. Per family, they spoke with the pts PCP who stated to bring the patient to the ER for further evaluation. Pt is pending a lock down facility placement in [place]. ASW attempted to contact the facility at 0715, but the Trailer [facility] [phone] was not in yet. ASW was told to call back at [phone].
--- NOTE | 2025-06-21 08:13 | PC.NURSE ---
Patient given breakfast tray. States that he is cold. Warm blanket given to patient. Patient states that he will eat breakfast after he warms up.
--- NOTE | 2025-06-21 08:41 | PC.SS ---
SS follow up note; SS attempted to contact Stan from [facility], SS was informed Stan was not in the office at the time and informed SS to contact Stan at a later time.
--- NOTE | 2025-06-21 09:14 | PC.SS ---
Addendum entered by Suzanne Goldberg 06/21/25 10:22: SS follow up note; SS was contacted by Kathleen from [facility] to confirm patient's acceptance and requested SS email for rate details and also forms that need to be filled out by the emergency Dr. SS to discuss with the patient's daughter, Marizol and provide Kathleen's contact information. Original Note: SS follow up note; SS spoke to Emilia from [facility] in [place] and informed her that patient was needing placement. Emilia informed informed SS that they will review patient's clinicals and would contact SS. SS send clinicals via Fax. Emilia informed SS that they might possibly be able to accept patient watermaster. SS will contact patient's sister, Marizol to update her.
--- NOTE | 2025-06-21 09:15 | PC.SS ---
SS follow up note; SS spoke to Emilia from [facility] in [place] [phone] and informed her that patient was needing placement. Emilia informed informed SS that they will review patient's clinicals and would contact SS. SS send clinicals via Fax. Emilia informed SS that they might possibly be able to accept patient mcc. SS will contact patient's sister, Marizol to update her.
[2025-06-21 09:29] LABS: INR 3.1 (0.9-1.3); Partial Thromboplastin Time 41.9 Seconds (22.0-36.0)
[2025-06-21 09:41] VITALS: BP 150/68; PULSE 52
[2025-06-21] MEDS: MEMANTINE HCL 5 MG TABLET PO (09:41)
[2025-06-21] MEDS: NEBIVOLOL HCL 5 MG TABLET (NON-FORMULARY) PO (09:41)
[2025-06-21] MEDS: OLMESARTAN HYDROCHLOROTHIAZIDE PO (09:41)
[2025-06-21] MEDS: BREXPIPRAZOLE 1 MG PO (09:44)
--- NOTE | 2025-06-21 10:37 | PC.SS ---
Addendum entered by Suzanne Goldberg 06/21/25 15:48: SS follow up note; Charge nurse, Maria Alejandra contacted patient's daughter, Marizol and asked if they are able to provide transportation for patient, Marizol agreeable to transport patient home. SS contacted [facility] services and canceled transportation with them. No further needs at the time. Addendum entered by Suzanne Goldberg 06/21/25 15:06: SS follow up note; SS contacted patient's daughter, Marizol and she updated her with ETA. Addendum entered by Suzanne Goldberg 06/21/25 15:01: SS follow up note; SS met with patient's daughter's in the Emergency conference as well as Dr. Khan, they informed SS that they have made a decision and they would like for patient to discharge home with [facility]. Patient's daughter expressed that at the time they are not able to provide payment for patient to discharge to a memory care facility; SS verbalized understanding. Patient's daughters adamant about taking patient home today, Dr. Khan informed them that at the time patient is medically stable and therefore is able to discharge home today. SS sent Hospice referral via [employer]. SS set up transportation for patient through [employer] for 5:30PM. SS will update patient's daughters and Patient's Nurse. SS contacted Kathleen from [facility] and updated her with Patient's ETA. Addendum entered by Suzanne Goldberg 06/21/25 13:22: SS follow up note SS contacted [facility] [place], [facility], and [facility] in regards to providing Monthly rates, all facilities informed SS they are able to accept patient. SS contacted patient's daughters and informed them they needed to decide since there was accepting facilities. Patient's daughter, Marizol informed SS they are on their way to discuss discharge plan with SS. SS will stand by for further needs. Addendum entered by Suzanne Goldberg 06/21/25 12:20: SS follow up note; SS was contacted by Lucie who also works at [facility], she informed SS that she oversees different facilities and The facility from [facility], she informed SS they are not able to accept patient. Original Note: SS follow up note: SS contacted patient's daughterMarizol to go over the monthly rate, she informed SS that she would like to discuss it furthermore with her sister and will meet with SS today to develop a discharge plan.
[2025-06-21 10:55] LABS: Prothrombin Time 31.6 Seconds (9.0-12.2)
--- NOTE | 2025-06-21 11:28 | XR_ITS ---
Examination: PA lateral chest 2 views TECHNIQUE: Upright PA lateral chest 2 views Date and time: June 21, 2025 1134 hours Comparison October 24, 2020 INDICATIONS: Difficulty breathing today. FINDINGS: Mild enlargement left ventricle The film is underpenetrated Ectatic enlarged thoracic aorta again noted Increased AP dimension chest Moderate thoracic spondylosis No pneumonia or pulmonary edema IMPRESSION: Mild hyperexpansion No interval pneumonia or pulmonary edema
[2025-06-21] MEDS: WARFARIN 2.5 MG TABLET 5 MG PO (14:30)
== END 2025-06-21 16:13 | disposition hospice, home (50) ==
PROVIDERS: Emergency Provider Emergency Medicine; PCP Internal Medicine
DX: F01.511 Vascular dementia, unspecified severity, with agitation (principal); F01.54 Vascular dementia, unspecified severity, with anxiety; R06.00 Dyspnea, unspecified
CPT/HCPCS: 36415; 71046; 80053; 81001; 85025; 85610; 85730; 96372; 99284; J1630; A9270